=== PATIENT | female | born 1975 | race Caucasian/White ===

== ENCOUNTER 2017-12-28 09:34 | Emergency (ER) | payer BC ==
[~2017-12-28] VITALS: Ht 162.6 cm; Wt 68.0 kg
--- NOTE | ~2017-12-28 | EKG ---
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 : 1975 Requested By: Thalia Nelson Order Number: [id number] MD: Mahesh Bobby Measurements Intervals [place] Rate: 56 P: 40 OR: 163 QRS: -8 QRSD: 96 T: 11 QT: 425 QTc: 411 Interpretive Statements Sinus bradycardia Low voltage, precordial leads RSR' in V1 or V2, probably normal variant No previous ECG available for comparison Electronically Signed On 12-28-2017 16:30:12 CDT by Mahesh Bobby [email or web address] <ELECTRONICALLY SIGNED> By: Mahesh Bobby MD, [facility] 12/28/17 1630 1009 1009 Mahesh Bobby MD, FACC /EPI
[2017-12-28] MEDS ORDERED: SYNTHROID75 MCG PO (09:50)
[2017-12-28 10:10] LABS: BASOPHILS 0.7 % (0.0-2.0); EOSINOPHILS 1.6 % (0.0-3.0); HEMOGLOBIN 15.5 gm/dL (12.0-15.0); LYMPHOCYTES 22.1 % (24.0-44.0); MCH 31.5 pg (26.0-34.0); MCHC 35.1 g/dL (28.0-37.0); MCV 89.8 fL (80.0-100.0); MONOCYTES 7.2 % (1.0-8.0); PLATELET COUNT 219 thou/uL (150-400); POLYS 68.4 % (36.0-66.0); RDW 12.8 % (10.5-14.5); WBC 7.4 thou/uL (4.0-11.0)
[2017-12-28 10:20] LABS: ANION GAP 7 mmol/L (7-16); BUN 11 mg/dL (7-18); CALCIUM 9.3 mg/dL (8.5-10.1); CHLORIDE 103 mmol/L (98-107); CO2 25 mmol/L (21-32); CREATININE 0.8 mg/dL (0.6-1.0); GLUCOSE 93 mg/dL (74-106); POTASSIUM 4.1 mmol/L (3.5-5.1); SODIUM 135 mmol/L (136-145)
[2017-12-28 10:32] LABS: ALBUMIN 3.9 g/dL (3.4-5.0); SGOT 14 U/L (15-37); SGPT 16 U/L (30-65); TOTAL BILIRUBIN 0.5 mg/dL (<0.1-1.0); TOTAL PROTEIN 7.6 g/dL (6.4-8.2); TROPONIN-I < 0.04 ng/mL (<0.06)
[2017-12-28 11:26] LABS: URINE BILIRUBIN NEGATIVE (Negative); URINE BLOOD NEGATIVE (Negative); URINE CLARITY SL CLOUDY; URINE COLOR YELLOW; URINE GLUCOSE-RANDOM* NEGATIVE (Negative); URINE KETONES NEGATIVE (Negative); URINE LEUKOCYTES-REFLEX NEGATIVE (Negative); URINE NITRITE-REFLEX NEGATIVE (Negative); URINE PROTEIN (DIPSTICK) NEGATIVE (Negative); URINE UROBILINOGEN 0.2 E.U./dl (0.2-1.0)
[2017-12-28] MEDS ORDERED: HYDROCODONE-AP1 EAC6 PO (11:34)
[2017-12-28 11:53] VITALS: BP 106/71
== END 2017-12-28 11:53 | disposition home or self-care (01) ==
LOC: ER 09:34
PROVIDERS: Physician Assistant
DX: K80.20 Calculus of gallbladder without cholecystitis without obstruction (principal); E03.9 Hypothyroidism, unspecified; R51 Headache; R11.0 Nausea; Z90.89 Acquired absence of other organs

== ENCOUNTER 2018-01-23 20:40 | Emergency (ER) | payer BC ==
[~2018-01-23] VITALS: Ht 162.6 cm; Wt 65.8 kg
--- NOTE | ~2018-01-23 | EKG ---
[address] [place] [address] ELECTROCARDIOGRAM REPORT Name: BROWN DELGADO 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 01/24/18 0805 2100 99 Mahesh Bobby MD, FACC /EPI
[~2018-01-23 20:40] MED LIST: HYDROCODONE-AP1 EAC6 PO; SYNTHROID75 MCG PO
[2018-01-23 20:58] LABS: URINE BILIRUBIN NEGATIVE (Negative); URINE BLOOD TRACE (Negative); URINE CLARITY CLEAR; URINE COLOR YELLOW; URINE GLUCOSE-RANDOM* NEGATIVE (Negative); URINE KETONES 1+ (Negative); URINE LEUKOCYTES-REFLEX NEGATIVE (Negative); URINE NITRITE-REFLEX NEGATIVE (Negative); URINE PROTEIN (DIPSTICK) NEGATIVE (Negative); URINE UROBILINOGEN 0.2 E.U./dl (0.2-1.0)
[2018-01-23 21:21] LABS: ABSOLUTE NEUTROPHILS 9.9 thou/uL (1.4-8.2); BASOPHILS 0.6 % (0.0-2.0); EOSINOPHILS 1.3 % (0.0-3.0); HEMATOCRIT 42.1 % (37.0-47.0); HEMOGLOBIN 14.8 gm/dL (12.0-15.0); MCH 31.6 pg (26.0-34.0); MCHC 35.1 g/dL (28.0-37.0); MCV 89.9 fL (80.0-100.0); MONOCYTES 6.4 % (1.0-8.0); PLATELET COUNT 241 thou/uL (150-400); POLYS 78.7 % (36.0-66.0); RBC 4.68 mil/uL (4.20-5.00); WBC 12.6 thou/uL (4.0-11.0)
[2018-01-23 21:26] LABS: ANION GAP 7 mmol/L (7-16); BUN 11 mg/dL (7-18); CALCIUM 8.9 mg/dL (8.5-10.1); CHLORIDE 103 mmol/L (98-107); CO2 27 mmol/L (21-32); GLUCOSE 93 mg/dL (74-106); POTASSIUM 3.5 mmol/L (3.5-5.1); SODIUM 137 mmol/L (136-145)
[2018-01-23 21:35] LABS: ALBUMIN 3.8 g/dL (3.4-5.0); SGOT 14 U/L (15-37); SGPT 17 U/L (30-65); TOTAL BILIRUBIN 0.5 mg/dL (<0.1-1.0); TOTAL PROTEIN 7.1 g/dL (6.4-8.2); TROPONIN-I <0.06 ng/mL (<0.06)
[2018-01-23 21:36] LABS: AMP/METHAMP Negative (Negative); BARBITURATES Negative (Negative); BENZODIAZEPINES Negative (Negative); COCAINE Negative (Negative); METHADONE Negative (Negative); OPIATES Negative (Negative); PCP Negative (Negative)
[2018-01-23 23:57] VITALS: BP 89/58
== END 2018-01-23 23:57 | disposition home or self-care (01) ==
LOC: ER 20:40
PROVIDERS: Physician Assistant
DX: S16.1XXA Strain of muscle, fascia and tendon at neck level, initial encounter (principal); S00.83XA Contusion of other part of head, initial encounter; R55 Syncope and collapse; E03.9 Hypothyroidism, unspecified; Z90.10 Acquired absence of unspecified breast and nipple; W22.8XXA Striking against or struck by other objects, initial encounter; Y92.89 Other specified places as the place of occurrence of the external cause; Y93.89 Activity, other specified; Y99.8 Other external cause status